=== PATIENT | female | born 1960 | race Caucasian/White ===

== ENCOUNTER 2017-04-15 09:45 | Emergency (ER) | payer MEDICARE ==
[~2017-04-15] VITALS: Ht 170.2 cm; Wt 83.0 kg
[~2017-04-15 09:45] MED LIST: ADVIL200 MG OR; ADVIL200 MG PO; ALBUTEROL2.5 MG/3 M IN; ALPRAZOLAM0.5 MG PO; ALPRAZOLAM1 MG PO; ALPRAZOLAM2 M1 PO; AMITRIPTYLIN25 MG PO; AMLODIPINE10 MG PO; AMOXICILLIN/PO500 MG PO; AMOXICILLIN500 MG OR; AMOXICILLIN500 MG PO; ATENOLOL50 MG OR; ATORVASTATIN CA20 MG PO; AUGMENTIN500TAB PO; AUGMENTIN875 MG OR; BACTRIM DS1 TAB OR; BENADRY2 EX; CIPRO XR500 MG OR; CORTISPORIN OTI10 ML OT; DILANTIN100 MG PO; DILAUDID2 MG PO; DILTIAZEM60 M1 OR; DITROPAN PO; DITROPAN XL10 MG PO; DUONEB IN; ELIMITE60 GM EX; ELIQUIS5 MG PO; FENOFIBRATE145 MG PO; FENOFIBRATE160 MG PO; FLUARIX QUADRIV1 INJ IM; FUROSEMIDE40 MG PO; HYDROCHLORO25 MG/TAB PO; IMITREX25 MG PO; KEFLEX500 M1 PO; KEPPRA500 M2 PO; KLOR-CON 1010 ME1 PO; KLOR-CON M1010 MEQ OR; KLOR-CON M1010 MEQ PO; LEVAQUIN500 MG PO; LIPITOR10 MG PO; LIPITOR20 MG OR; LIPITOR40 M1 PO; LIPITOR40 MG PO; LISINOPRIL10 MG PO; LISINOPRIL20 MG OR; LOFIBRA134 MG PO; LOFIBRA160 MG OR; LOFIBRA160 MG PO; LORTAB 10-325 M1 TAB PO; LORTAB 5 OR; LORTAB 5-325 MG1 TAB PO; LORTAB 7.5 OR; LORTAB 7.5 PO; LORTAB5 OR; MEDDOSEPAK PO; NAPROSYN500 MG OR; NAPROSYN500 MG PO; NEBULIZE1; NEBULIZE1 NEB; NORCO1 TA2 PO; NORVASC5 MG PO; PENICILLN VK500 MG PO; PHENYTOIN EX100 MG PO; POT CHLORIDE10 ME1 PO; ROBITUSSIN AC10 ML PO; SOMA350 MG OR; SOMA350 MG PO; TIZANIDINE4 MG PO; TRAMADOL HCL50 MG OR; TUSSIONEX1 ML OR; ULTRAM50 M1 PO; XANAX1 MG OR; ZITHROMAX250 MG OR; ZITHROMAX250 MG PO; ZPAK PO; [UNRECOGNIZED DRUG - REMARK]
[2017-04-15] MEDS ORDERED: LORTAB 5-325 MG1 TAB PO (10:18)
[2017-04-15] MEDS ORDERED: FLEXERIL PO (10:18)
[2017-04-15] MEDS ORDERED: NAPROSYN500 MG PO (10:18)
[2017-04-15 10:54] VITALS: BP 121/81
== END 2017-04-15 12:40 | disposition home or self-care (01) ==
LOC: ED 09:45
DX: S39.012A Strain of muscle, fascia and tendon of lower back, initial encounter (principal); S93.602A Unspecified sprain of left foot, initial encounter; I10 Essential (primary) hypertension; F41.9 Anxiety disorder, unspecified; G40.909 Epilepsy, unspecified, not intractable, without status epilepticus; F17.210 Nicotine dependence, cigarettes, uncomplicated; V68.1XXA Passenger in heavy transport vehicle injured in noncollision transport accident in nontraffic accident, initial encounter

== ENCOUNTER 2017-06-03 16:07 | Emergency (ER) | payer MEDICARE ==
[~2017-06-03] VITALS: Ht 170.2 cm; Wt 80.0 kg
[~2017-06-03 16:07] MED LIST changes: +FLEXERIL PO
[2017-06-03] MEDS ORDERED: MOTRIN800 MG PO (16:36)
[2017-06-03 16:42] VITALS: BP 107/67
== END 2017-06-03 16:52 | disposition home or self-care (01) ==
LOC: ED 16:07
DX: G89.29 Other chronic pain (principal); M54.5 Low back pain; I10 Essential (primary) hypertension; F41.9 Anxiety disorder, unspecified; G40.909 Epilepsy, unspecified, not intractable, without status epilepticus; F17.210 Nicotine dependence, cigarettes, uncomplicated; Z76.5 Malingerer [conscious simulation]

== ENCOUNTER 2017-08-07 15:40 | Emergency (ER) | payer MEDICARE ==
[~2017-08-07] VITALS: Ht 170.2 cm; Wt 73.4 kg
[~2017-08-07 15:40] MED LIST changes: +MOTRIN800 MG PO
[2017-08-07] MEDS ORDERED: EC-NAPROSYN500 MG PO (17:11)
[2017-08-07 17:28] VITALS: BP 102/72
== END 2017-08-07 17:24 | disposition home or self-care (01) ==
LOC: ED 15:40
DX: S16.1XXA Strain of muscle, fascia and tendon at neck level, initial encounter (principal); S39.012A Strain of muscle, fascia and tendon of lower back, initial encounter; I10 Essential (primary) hypertension; F41.9 Anxiety disorder, unspecified; F17.210 Nicotine dependence, cigarettes, uncomplicated; M25.531 Pain in right wrist; M79.641 Pain in right hand; V88.8XXA Person injured in other specified noncollision transport accidents involving motor vehicle, nontraffic, initial encounter

== ENCOUNTER 2018-09-06 10:50 | Emergency (ER) | payer MEDICARE ==
[~2018-09-06] VITALS: Ht 170.2 cm; Wt 72.0 kg
[~2018-09-06 10:50] MED LIST changes: +EC-NAPROSYN500 MG PO
[2018-09-06 11:49] LABS: HEMATOCRIT 32.2 % (37.0-47.0); HEMOGLOBIN 10.6 g/dl (12.0-16.0); IMMATURE GRANULOCYTES 0.2 % (0.0-5.0); MEAN CORPUSCULAR HGB 32.9 pG CALC (26.0-32.0); MEAN CORPUSCULAR HGB CONC 32.9 g/L CALC (32.0-36.0); NEUT# 2.29 thou/uL (2.00-7.15); RED BLOOD COUNT 3.22 mill/uL (4.20-5.60); RED CELL DISTRI WIDTH 12.2 % (11.5-15.5)
[2018-09-06 12:22] LABS: ALBUMIN 3.8 g/dL (3.2-5.0); ALKALINE PHOSPHATASE 76 u/l (38-126); ANION GAP 11 (6-22 (CALC)); BILIRUBIN, TOTAL 0.2 mg/dL (0.0-1.4); BUN 18 mg/dL (7-17); BUN/CREATININE RATIO 41 (12-20 (CALC)); C-REACTIVE PROTEIN 1.6 mg/dL (0-0.9); CARBON DIOXIDE 26 mmol/l (22-30); CHLORIDE 106 mmol/l (95-108); CREATININE 0.4 mg/dL (0.5-1.0); GFR > 60 ML/MIN (>=60 (CALC)); GFR FOR AFR.AMER. > 60 ML/MIN (>=60 (CALC)); SGOT/AST 14 u/l (14-36); SODIUM 140 mmol/l (137-146)
[2018-09-06 12:23] LABS: TOTAL PROTEIN 6.3 g/dL (6.3-8.2)
[2018-09-06] MEDS ORDERED: TORADOL PO (13:57)
[2018-09-06 14:04] VITALS: BP 129/81
== END 2018-09-06 14:17 | disposition home or self-care (01) ==
LOC: ED 10:50
PROVIDERS: Emergency Medicine
DX: M79.605 Pain in left leg (principal); M79.89 Other specified soft tissue disorders; I10 Essential (primary) hypertension; F41.9 Anxiety disorder, unspecified; F32.9 Major depressive disorder, single episode, unspecified

== ENCOUNTER 2018-11-19 08:19 | Inpatient (IN) | payer MEDICARE ==
[~2018-11-19] VITALS: Ht 165.1 cm; Wt 21.9 kg
[2018-11-19] VITALS (28 sets, daily range): BP systolic 92–131; BP diastolic 59–82
[~2018-11-19 08:19] MED LIST changes: +IBUPROFEN200 MG PO; +TORADOL PO
[2018-11-19 09:18] LABS: HEMATOCRIT 35.1 % (37.0-47.0); IMMATURE GRANULOCYTES 0.8 % (0.0-5.0); MEAN CELL VOLUME 91.4 fL CALC (80.0-100.0); MEAN CORPUSCULAR HGB 31.3 pG CALC (26.0-32.0); MEAN CORPUSCULAR HGB CONC 34.2 g/L CALC (32.0-36.0); NEUT# 6.63 thou/uL (2.00-7.15); RED BLOOD COUNT 3.84 mill/uL (4.20-5.60); RED CELL DISTRI WIDTH 12.1 % (11.5-15.5)
[2018-11-19 09:30] LABS: BUN 17 mg/dL (7-17); BUN/CREATININE RATIO 48 (12-20 (CALC)); CARBON DIOXIDE 25 mmol/l (22-30); CHLORIDE 97 mmol/l (95-108); CREATININE 0.3 mg/dL (0.5-1.0); GFR > 60 ML/MIN (>=60 (CALC)); GFR FOR AFR.AMER. > 60 ML/MIN (>=60 (CALC)); SODIUM 140 mmol/l (137-146)
[2018-11-19 10:19] LABS: ANION GAP 20 (6-22 (CALC)); POTASSIUM 2.3 mmol/l (3.5-5.1)
[2018-11-19 11:43] LABS: ACT PARTIAL THROMBO TIME 35.2 SECONDS (20.0-32.5); INTERNATIONAL NORMALIZED RATIO 1.1 RATIO (0.7-1.3); PROTHROMBIN TIME 11.1 SECONDS (9.0-12.5)
[2018-11-19 12:14] LABS: COCAINE NEGATIVE (NEGATIVE); METHADONE NEGATIVE (NEGATIVE); TETRAHYDROCANNABIONOL NEGATIVE (NEGATIVE)
[2018-11-19 12:15] LABS: BARBITURATES POSITIVE (NEGATIVE); OXCYCODONE NEGATIVE (NEGATIVE); TRICYLIC ANTIDEPRESSANTS POSITIVE (NEGATIVE)
[2018-11-19 18:15] LABS: HEMATOCRIT 31.9 % (37.0-47.0); HEMOGLOBIN 10.7 g/dl (12.0-16.0); MEAN CELL VOLUME 93.3 fL CALC (80.0-100.0); MEAN CORPUSCULAR HGB 31.3 pG CALC (26.0-32.0); MEAN CORPUSCULAR HGB CONC 33.5 g/L CALC (32.0-36.0); NEUT# 5.39 thou/uL (2.00-7.15); RED BLOOD COUNT 3.42 mill/uL (4.20-5.60); RED CELL DISTRI WIDTH 12.4 % (11.5-15.5)
[2018-11-19 18:41] LABS: ALKALINE PHOSPHATASE 123 u/l (38-126); BILIRUBIN, TOTAL 0.6 mg/dL (0.0-1.4); BUN 16 mg/dL (7-17); BUN/CREATININE RATIO 44 (12-20 (CALC)); CARBON DIOXIDE 26 mmol/l (22-30); CHLORIDE 99 mmol/l (95-108); CREATININE 0.4 mg/dL (0.5-1.0); GFR > 60 ML/MIN (>=60 (CALC)); GFR FOR AFR.AMER. > 60 ML/MIN (>=60 (CALC)); SODIUM 139 mmol/l (137-146)
[2018-11-19 18:50] LABS: ALBUMIN 2.8 g/dL (3.2-5.0); ANION GAP 17 (6-22 (CALC)); POTASSIUM 2.9 mmol/l (3.5-5.1); SGOT/AST 30 u/l (14-36); TOTAL PROTEIN 5.4 g/dL (6.3-8.2)
[2018-11-19 19:25] LABS: URINE BLOOD DIPSTICK LARGE (NEGATIVE); URINE COLOR YELLOW; URINE GLUCOSE - DIPSTICK NEGATIVE (NEGATIVE); URINE KETONE 15 mg/dL (NEGATIVE); URINE LEUK ESTERASE NEGATIVE (NEGATIVE); URINE NITRITE - DIPSTICK NEGATIVE (Negative); URINE PROTEIN - DIPSTICK >=300 mg/dL (NEG-TRACE); URINE SPECIFIC GRAVITY >=1.030; URINE UROBILINOGEN - DIPSTICK 0.2 E.U./dL (0.2)
[2018-11-19 19:31] LABS: URINE BILIRUBIN - DIPSTICK NEGATIVE (NEGATIVE)
[2018-11-19 19:33] LABS: URINE AMORPH SEDIMENT MANY hpf (NONE-FEW); URINE SQUAMOUS EPITHELIAL CELL FEW EPI/hpf (0-FEW)
== END 2018-11-19 21:10 | DRG 208 ==
LOC: ED 08:19 → ED-I 09:50 → ED 10:45 → ICU 10:46
PROVIDERS: Family Medicine; ADMIT Internal Medicine Geriatric Medicine; ATTEND Internal Medicine Geriatric Medicine
PROC: 0BH17EZ Insertion of Endotracheal Airway into Trachea, Via Natural or Artificial Opening (ICD-10-PCS; principal; 2018-11-19)
PROC: 5A1935Z Respiratory Ventilation, Less than 24 Consecutive Hours (ICD-10-PCS; 2018-11-19)
PROC: 02HV33Z Insertion of Infusion Device into Superior Vena Cava, Percutaneous Approach (ICD-10-PCS; 2018-11-19)
DX: J44.1 Chronic obstructive pulmonary disease with (acute) exacerbation (principal); J96.01 Acute respiratory failure with hypoxia; F11.20 Opioid dependence, uncomplicated; G89.29 Other chronic pain; M54.5 Low back pain; F13.180 Sedative, hypnotic or anxiolytic abuse with sedative, hypnotic or anxiolytic-induced anxiety disorder; F12.10 Cannabis abuse, uncomplicated; F19.10 Other psychoactive substance abuse, uncomplicated; E03.9 Hypothyroidism, unspecified; I10 Essential (primary) hypertension; F32.9 Major depressive disorder, single episode, unspecified; I25.10 Atherosclerotic heart disease of native coronary artery without angina pectoris; E78.5 Hyperlipidemia, unspecified; F17.210 Nicotine dependence, cigarettes, uncomplicated
CPT/HCPCS: G9019; J1644; J3475

== ENCOUNTER 2019-05-22 15:21 | Emergency (ER) | payer MEDICARE, MEDICAID ==
[~2019-05-22] VITALS: Ht 165.1 cm; Wt 75.0 kg
[2019-05-22] MEDS ORDERED: CEPHALEXIN500 M1 PO (15:32)
[2019-05-22] MEDS ORDERED: BACTRIM DS1 TAB PO (15:32)
[2019-05-22] MEDS ORDERED: DILANTIN100 MG PO (15:42)
[2019-05-22] MEDS ORDERED: TRICOR48 MG PO (15:43)
[2019-05-22] MEDS ORDERED: LISINOPRIL10 M1 PO (15:46)
[2019-05-22] MEDS ORDERED: AMLODIPINE BESY10 MG PO (15:47)
[2019-05-22 16:09] VITALS: BP 162/82
== END 2019-05-22 15:50 | disposition home or self-care (01) ==
LOC: ED 15:21
PROC: 0H97XZZ Drainage of Abdomen Skin, External Approach (ICD-10-PCS; principal; 2019-05-22)
DX: L02.211 Cutaneous abscess of abdominal wall (principal); I10 Essential (primary) hypertension; J44.9 Chronic obstructive pulmonary disease, unspecified; F17.210 Nicotine dependence, cigarettes, uncomplicated; B95.62 Methicillin resistant Staphylococcus aureus infection as the cause of diseases classified elsewhere

== ENCOUNTER 2019-05-24 12:19 | Emergency (ER) | payer MEDICARE, MEDICAID ==
[~2019-05-24] VITALS: Ht 165.1 cm; Wt 68.0 kg
[~2019-05-24 12:19] MED LIST changes: +AMLODIPINE BESY10 MG PO; +BACTRIM DS1 TAB PO; +CEPHALEXIN500 M1 PO; +LISINOPRIL10 M1 PO; +TRICOR48 MG PO
[2019-05-24] MEDS ORDERED: FENOFIBRATE145 MG PO (12:36)
[2019-05-24] MEDS ORDERED: AMITRIPTYLIN25 MG PO (12:37)
[2019-05-24] MEDS ORDERED: GABAPENTIN600 MG PO (12:37)
[2019-05-24] MEDS ORDERED: LORTAB 1010 MG PO (12:38)
[2019-05-24] MEDS ORDERED: DIAZEPAM5 M1 PO (12:38)
[2019-05-24] MEDS ORDERED: HYDROCHLOROT25 MG PO (12:39)
[2019-05-24 12:55] VITALS: BP 128/82
== END 2019-05-24 12:55 | disposition home or self-care (01) ==
LOC: ED 12:19
DX: Z48.01 Encounter for change or removal of surgical wound dressing (principal); I10 Essential (primary) hypertension; J44.9 Chronic obstructive pulmonary disease, unspecified; F17.210 Nicotine dependence, cigarettes, uncomplicated

== ENCOUNTER 2019-07-02 05:53 | Inpatient (IN) | payer MEDICARE, MEDICAID ==
[~2019-07-02] VITALS: Ht 165.1 cm; Wt 74.4 kg
[2019-07-02] VITALS (41 sets, daily range): BP systolic 80–132; BP diastolic 51–83
[~2019-07-02 05:53] MED LIST changes: +DIAZEPAM5 M1 PO; +GABAPENTIN600 MG PO; +HYDROCHLOROT25 MG PO; +LORTAB 1010 MG PO
[2019-07-02] MEDS ORDERED: CYCLOBENZAPR5 MG PO (06:21)
[2019-07-02] MEDS ORDERED: TESSALON PER100 MG PO (06:22)
[2019-07-02] MEDS ORDERED: NORVASC5 M1 PO (06:23)
[2019-07-02] MEDS ORDERED: ATORVASTATIN CA40 MG PO (06:23)
[2019-07-02 06:41] LABS: HEMATOCRIT 39.7 % (37.0-47.0); HEMOGLOBIN 13.7 g/dl (12.0-16.0); IMMATURE GRANULOCYTES 0.2 % (0.0-5.0); MEAN CORPUSCULAR HGB 32.8 pG CALC (26.0-32.0); MEAN CORPUSCULAR HGB CONC 34.5 g/L CALC (32.0-36.0); NEUT# 5.83 thou/uL (2.00-7.15); RED BLOOD COUNT 4.18 mill/uL (4.20-5.60); RED CELL DISTRI WIDTH 11.7 % (11.5-15.5)
[2019-07-02 06:43] LABS: URINE BILIRUBIN - DIPSTICK NEGATIVE (NEGATIVE); URINE BLOOD DIPSTICK TRACE-LYSED (NEGATIVE); URINE COLOR YELLOW; URINE KETONE NEGATIVE (NEGATIVE); URINE LEUK ESTERASE NEGATIVE (NEGATIVE); URINE NITRITE - DIPSTICK NEGATIVE (Negative); URINE PROTEIN - DIPSTICK NEGATIVE (NEG-TRACE); URINE SPECIFIC GRAVITY >=1.030; URINE UROBILINOGEN - DIPSTICK 0.2 E.U./dL (0.2)
[2019-07-02 06:44] LABS: URINE GLUCOSE - DIPSTICK NEGATIVE (NEGATIVE)
[2019-07-02 06:55] LABS: ALBUMIN 4.4 g/dL (3.2-5.0); ALKALINE PHOSPHATASE 96 u/l (38-126); ANION GAP 18 (6-22 (CALC)); BILIRUBIN, TOTAL 0.6 mg/dL (0.0-1.4); BUN 41 mg/dL (7-17); BUN/CREATININE RATIO 15 (12-20 (CALC)); CARBON DIOXIDE 23 mmol/l (22-30); CHLORIDE 98 mmol/l (95-108); GFR 18 ML/MIN (>=60 (CALC)); GFR FOR AFR.AMER. 22 ML/MIN (>=60 (CALC)); POTASSIUM 3.3 mmol/l (3.5-5.1); SGOT/AST 13 u/l (14-36); SODIUM 136 mmol/l (137-146); TOTAL PROTEIN 7.4 g/dL (6.3-8.2)
[2019-07-02 06:56] LABS: CREATININE 2.7 mg/dL (0.5-1.0)
[2019-07-02 07:07] LABS: MYOGLOBIN 117 ng/mL (0 - 62)
[2019-07-02 09:23] LABS: BARBITURATES POSITIVE (NEGATIVE); COCAINE NEGATIVE (NEGATIVE); METHADONE NEGATIVE (NEGATIVE); OXCYCODONE POSITIVE (NEGATIVE); TETRAHYDROCANNABIONOL NEGATIVE (NEGATIVE); TRICYLIC ANTIDEPRESSANTS POSITIVE (NEGATIVE)
[2019-07-03] VITALS (9 sets, daily range): BP systolic 111–161; BP diastolic 56–93
[2019-07-03 05:16] LABS: HEMATOCRIT 36.1 % (37.0-47.0); HEMOGLOBIN 12.5 g/dl (12.0-16.0); IMMATURE GRANULOCYTES 0.2 % (0.0-5.0); MEAN CELL VOLUME 95.8 fL CALC (80.0-100.0); MEAN CORPUSCULAR HGB 33.2 pG CALC (26.0-32.0); MEAN CORPUSCULAR HGB CONC 34.6 g/L CALC (32.0-36.0); NEUT# 3.59 thou/uL (2.00-7.15); RED BLOOD COUNT 3.77 mill/uL (4.20-5.60); RED CELL DISTRI WIDTH 11.7 % (11.5-15.5)
[2019-07-03 05:36] LABS: ALBUMIN 3.6 g/dL (3.2-5.0); ALKALINE PHOSPHATASE 85 u/l (38-126); ANION GAP 10 (6-22 (CALC)); BUN 16 mg/dL (7-17); BUN/CREATININE RATIO 32 (12-20 (CALC)); CARBON DIOXIDE 28 mmol/l (22-30); CHLORIDE 105 mmol/l (95-108); CREATININE 0.5 mg/dL (0.5-1.0); GFR > 60 ML/MIN (>=60 (CALC)); GFR FOR AFR.AMER. > 60 ML/MIN (>=60 (CALC)); POTASSIUM 3.6 mmol/l (3.5-5.1); SGOT/AST 12 u/l (14-36); SODIUM 139 mmol/l (137-146); TOTAL PROTEIN 6.2 g/dL (6.3-8.2)
[2019-07-03 05:37] LABS: BILIRUBIN, TOTAL 0.3 mg/dL (0.0-1.4)
[2019-07-04] VITALS (9 sets, daily range): BP systolic 112–150; BP diastolic 73–96
== END 2019-07-04 16:25 | DRG 897 ==
LOC: ED 05:53 → ED-I 08:23 → ICU 08:41 → ED 08:41 → ICU 08:41
PROVIDERS: Emergency Medicine; ADMIT Internal Medicine Geriatric Medicine; ATTEND Internal Medicine Geriatric Medicine
PROC: 02HV33Z Insertion of Infusion Device into Superior Vena Cava, Percutaneous Approach (ICD-10-PCS; principal; 2019-07-02)
PROC: 0T9B70Z Drainage of Bladder with Drainage Device, Via Natural or Artificial Opening (ICD-10-PCS; 2019-07-02)
DX: F13.180 Sedative, hypnotic or anxiolytic abuse with sedative, hypnotic or anxiolytic-induced anxiety disorder (principal); F19.20 Other psychoactive substance dependence, uncomplicated; F11.950 Opioid use, unspecified with opioid-induced psychotic disorder with delusions; F11.951 Opioid use, unspecified with opioid-induced psychotic disorder with hallucinations; F15.950 Other stimulant use, unspecified with stimulant-induced psychotic disorder with delusions; F15.951 Other stimulant use, unspecified with stimulant-induced psychotic disorder with hallucinations; I10 Essential (primary) hypertension; J44.9 Chronic obstructive pulmonary disease, unspecified; F17.200 Nicotine dependence, unspecified, uncomplicated; I95.9 Hypotension, unspecified; E03.9 Hypothyroidism, unspecified; I25.10 Atherosclerotic heart disease of native coronary artery without angina pectoris; G89.29 Other chronic pain
CPT/HCPCS: J2060

== ENCOUNTER 2019-09-13 17:12 | Emergency (ER) | payer MEDICARE, MEDICAID ==
[~2019-09-13] VITALS: Ht 170.2 cm; Wt 70.0 kg
[~2019-09-13 17:12] MED LIST changes: +ATORVASTATIN CA40 MG PO; +CYCLOBENZAPR5 MG PO; +NORVASC5 M1 PO; +TESSALON PER100 MG PO
[2019-09-13 20:02] LABS: HEMATOCRIT 32.7 % (37.0-47.0); IMMATURE GRANULOCYTES 0.4 % (0.0-5.0); MEAN CELL VOLUME 92.1 fL CALC (80.0-100.0); MEAN CORPUSCULAR HGB 28.5 pG CALC (26.0-32.0); MEAN CORPUSCULAR HGB CONC 30.9 g/L CALC (32.0-36.0); NEUT# 5.12 thou/uL (2.00-7.15); RED BLOOD COUNT 3.55 mill/uL (4.20-5.60); RED CELL DISTRI WIDTH 16.2 % (11.5-15.5)
[2019-09-13 20:03] LABS: HEMOGLOBIN 10.1 g/dl (12.0-16.0)
[2019-09-13 20:26] LABS: ALBUMIN 3.8 g/dL (3.2-5.0); CREATININE 1.2 mg/dL (0.5-1.0); MAGNESIUM 1.6 mg/dL (1.6-2.3); POTASSIUM 4.1 mmol/l (3.5-5.1); TOTAL PROTEIN 7.3 g/dL (6.3-8.2)
[2019-09-13 20:36] LABS: BILIRUBIN, TOTAL 0.7 mg/dL (0.0-1.4)
[2019-09-13 20:55] LABS: TSH, 3RD GENERATION 0.41 uIU/mL (0.47 - 4.68)
[2019-09-14 00:38] LABS: URINE BILIRUBIN - DIPSTICK NEGATIVE (NEGATIVE); URINE BLOOD DIPSTICK MODERATE (NEGATIVE); URINE COLOR YELLOW; URINE GLUCOSE - DIPSTICK NEGATIVE (NEGATIVE); URINE KETONE NEGATIVE (NEGATIVE); URINE LEUK ESTERASE NEGATIVE (NEGATIVE); URINE NITRITE - DIPSTICK NEGATIVE (Negative); URINE PH 5.5 (4.5-8.0); URINE PROTEIN - DIPSTICK TRACE mg/dL (NEG-TRACE); URINE SPECIFIC GRAVITY 1.025; URINE UROBILINOGEN - DIPSTICK 0.2 E.U./dL (0.2)
[2019-09-14 00:42] LABS: COCAINE NEGATIVE (NEGATIVE); METHADONE NEGATIVE (NEGATIVE); TETRAHYDROCANNABIONOL NEGATIVE (NEGATIVE)
[2019-09-14 00:43] LABS: BARBITURATES NEGATIVE (NEGATIVE); OXCYCODONE POSITIVE (NEGATIVE); TRICYLIC ANTIDEPRESSANTS NEGATIVE (NEGATIVE)
[2019-09-14 00:45] LABS: URINE SQUAMOUS EPITHELIAL CELL MANY EPI/hpf (0-FEW)
[2019-09-14] MEDS ORDERED: HYDROCODONE BIT1 TA9 PO (00:56)
[2019-09-14] MEDS ORDERED: XANAX1 MG PO (00:57)
[2019-09-14 01:12] VITALS: BP 89/63
== END 2019-09-14 01:12 | disposition home or self-care (01) ==
LOC: ED 17:12
PROVIDERS: Family Medicine
DX: I95.2 Hypotension due to drugs (principal); R40.0 Somnolence; T40.2X5A Adverse effect of other opioids, initial encounter; I10 Essential (primary) hypertension; J44.9 Chronic obstructive pulmonary disease, unspecified; F17.210 Nicotine dependence, cigarettes, uncomplicated; Z89.612 Acquired absence of left leg above knee

== ENCOUNTER 2021-03-04 12:10 | Emergency (ER) | payer MEDICARE, MEDICAID ==
[~2021-03-04] VITALS: Ht 170.2 cm; Wt 63.0 kg
[~2021-03-04 12:10] MED LIST changes: +HYDROCODONE BIT1 TA9 PO; +XANAX1 MG PO
[2021-03-04] MEDS ORDERED: OXYCODONE5 M1 PO (13:41)
[2021-03-04 14:00] VITALS: BP 170/90
[2021-06-22] MEDS ORDERED: MORPHINE SULFAT20 MG PO ×2 (16:22→16:27)
[2021-06-22] MEDS ORDERED: OXYCODONE10 M1 PO ×2 (16:32→16:33)
[2021-06-23] MEDS ORDERED: OXYCODONE10 M1 PO (10:19)
[2021-06-23] MEDS ORDERED: MORPHINE SULFAT20 MG PO (10:22)
== END 2021-03-04 14:07 | disposition home or self-care (01) ==
LOC: ED 12:10
PROC: 2W3CX1Z Immobilization of Right Lower Arm using Splint (ICD-10-PCS; principal; 2021-03-04)
DX: S62.396A Other fracture of fifth metacarpal bone, right hand, initial encounter for closed fracture (principal); I10 Essential (primary) hypertension; F32.9 Major depressive disorder, single episode, unspecified; F41.9 Anxiety disorder, unspecified; J44.9 Chronic obstructive pulmonary disease, unspecified; F17.200 Nicotine dependence, unspecified, uncomplicated; W18.30XA Fall on same level, unspecified, initial encounter; Y92.009 Unspecified place in unspecified non-institutional (private) residence as the place of occurrence of the external cause; Z91.81 History of falling; Z89.612 Acquired absence of left leg above knee

== ENCOUNTER 2021-08-03 18:21 | Emergency (ER) | payer MEDICARE, MEDICAID ==
[~2021-08-03] VITALS: Ht 170.2 cm; Wt 60.0 kg
[~2021-08-03 18:21] MED LIST changes: +MORPHINE SULFAT20 MG PO; +MS CONTIN15 M1 PO; +OXYCODONE10 M1 PO; +OXYCODONE5 M1 PO
[2021-08-03 18:30] VITALS: BP 105/63
[2021-08-03 18:49] LABS: HEMATOCRIT 42.9 % (37.0-47.0); HEMOGLOBIN 13.9 g/dl (12.0-16.0); IMMATURE GRANULOCYTES 0.2 % (0.0-5.0); MEAN CORPUSCULAR HGB 31.1 pG CALC (26.0-32.0); MEAN CORPUSCULAR HGB CONC 32.4 g/dL CAL (32.0-36.0); NEUT# 3.1 thou/uL (2.00-7.15); RED BLOOD COUNT 4.47 mill/uL (4.20-5.60); RED CELL DISTRI WIDTH 11.7 % (11.5-15.5)
[2021-08-03 19:07] LABS: ALBUMIN 4.8 g/dL (3.2-5.0); ALKALINE PHOSPHATASE 117 u/l (38-126); BUN 13 mg/dL (7-17); BUN/CREATININE RATIO 23 (12-20 (CALC)); CHLORIDE 103 mmol/l (95-108); CREATININE 0.6 mg/dL (0.5-1.0); ETHYL ALCOHOL 0 mg/dl (0-30); GFR > 60 ML/MIN (>=60 (CALC)); GFR FOR AFR.AMER. > 60 ML/MIN (>=60 (CALC)); MAGNESIUM 1.5 mg/dL (1.6-2.3); POTASSIUM 3.4 mmol/l (3.5-5.1); SGOT/AST 17 u/l (14-36); SODIUM 138 mmol/l (137-146); TOTAL PROTEIN 8.4 g/dL (6.3-8.2)
[2021-08-03 19:08] LABS: ANION GAP 17 (6-22 (CALC)); BILIRUBIN, TOTAL 0.6 mg/dL (0.0-1.4); CARBON DIOXIDE 21 mmol/l (22-30)
== END 2021-08-03 20:05 | disposition left against medical advice (07) ==
LOC: ED 18:21
PROVIDERS: Emergency Medicine
DX: T40.2X1A Poisoning by other opioids, accidental (unintentional), initial encounter (principal); R41.82 Altered mental status, unspecified; I10 Essential (primary) hypertension; J44.9 Chronic obstructive pulmonary disease, unspecified; F32.A Depression, unspecified; F41.9 Anxiety disorder, unspecified; Z91.19 Patient's noncompliance with other medical treatment and regimen

== ENCOUNTER 2021-08-11 07:01 | Day surgery (SDC) | payer MEDICARE, MEDICAID ==
[~2021-08-11] VITALS: Ht 170.2 cm; Wt 72.6 kg
[2021-08-11 09:20] VITALS: BP 145/80
== END 2021-08-11 10:15 | disposition home or self-care (01) ==
LOC: ORM 07:01
PROVIDERS: ATTEND Anesthesiology Pain Medicine
DX: M96.1 Postlaminectomy syndrome, not elsewhere classified (principal); M54.50 Low back pain, unspecified; M47.816 Spondylosis without myelopathy or radiculopathy, lumbar region

== ENCOUNTER 2021-09-29 06:24 | Day surgery (SDC) | payer MEDICARE, MEDICAID ==
[2021-09-29 07:56] VITALS: BP 141/95
== END 2021-09-29 08:15 | disposition home or self-care (01) ==
LOC: ORM 06:24
PROVIDERS: ATTEND Anesthesiology Pain Medicine
DX: M47.817 Spondylosis without myelopathy or radiculopathy, lumbosacral region (principal); M96.1 Postlaminectomy syndrome, not elsewhere classified; M54.59 Other low back pain

== ENCOUNTER 2022-06-29 13:31 | Emergency (ER) | payer MEDICARE, MEDICAID ==
[~2022-06-29] VITALS: Ht 170.2 cm; Wt 75.0 kg
[2022-06-29 13:39] VITALS: BP 120/79
[2022-06-29 13:46] VITALS: BP 110/64
[2022-06-29 14:01] VITALS: BP 96/61
[2022-06-29 14:16] VITALS: BP 111/72
[2022-06-29 14:30] VITALS: BP 113/72
[2022-06-29] MEDS ORDERED: NAPROXEN500 MG PO (16:11)
[2022-06-29 16:17] VITALS: BP 113/72
[2022-06-29] MEDS ORDERED: ULTRAM50 M1 PO (16:23)
== END 2022-06-29 16:31 | disposition home or self-care (01) ==
LOC: ED 13:31
DX: S43.402A Unspecified sprain of left shoulder joint, initial encounter (principal); S46.812A Strain of other muscles, fascia and tendons at shoulder and upper arm level, left arm, initial encounter; I10 Essential (primary) hypertension; J44.9 Chronic obstructive pulmonary disease, unspecified; F32.A Depression, unspecified; F41.9 Anxiety disorder, unspecified; W10.9XXA Fall (on) (from) unspecified stairs and steps, initial encounter; Y92.009 Unspecified place in unspecified non-institutional (private) residence as the place of occurrence of the external cause; Z89.612 Acquired absence of left leg above knee

== ENCOUNTER 2024-05-12 12:54 | Emergency (ER) | payer MEDICARE, MEDICAID ==
[~2024-05-12 12:54] MED LIST changes: +AZITHROMYCIN500 MG PO; +COZAAR25 MG PO; +CYMBALTA30 MG PO; +DOXYCYC MONO100 M3 PO; +HYDROCO/APAP1 TA9 PO; +NAPROXEN500 MG PO; +PREDNISONE10 MG PO; +TRAZODONE100 MG PO; +TRELEGY ELLIPTA1 AER IN
== END 2024-05-12 13:22 | disposition left against medical advice (07) ==
LOC: ED 12:54 → LWOBS 13:22
DX: Z53.21 Procedure and treatment not carried out due to patient leaving prior to being seen by health care provider (principal)

== ENCOUNTER 2024-10-20 15:06 | Emergency (ER) | payer MEDICARE, MEDICAID ==
[~2024-10-20] VITALS: Ht 170.2 cm; Wt 65.7 kg
[2024-10-20] MEDS ORDERED: SODIUM CHLORIDE 0.9% 1,000 ML IV ONE (15:15)
[2024-10-20 15:55] LABS: BASO% 0.5 % (0-3); EOS% 4.7 % (0-8); IMMATURE GRANULOCYTES 0.2 % (0.0-5.0); LYMPH% 36.4 % (15-41); MEAN CELL VOLUME 93.1 fL CALC (80.0-100.0); MEAN CORPUSCULAR HGB 30.6 pG CALC (26.0-32.0); MEAN CORPUSCULAR HGB CONC 32.9 g/dL CAL (32.0-36.0); MONO% 5.6 % (2-13); NEUT# 2.89 thou/uL (2.00-7.15); NEUT% 52.6 % (42-76); RED BLOOD COUNT 4.64 mill/uL (4.20-5.60); RED CELL DISTRI WIDTH 12.3 % (11.5-15.5)
[2024-10-20 15:57] LABS: HEMATOCRIT 43.2 % (37.0-47.0); HEMOGLOBIN 14.2 g/dl (12.0-16.0)
[2024-10-20 16:07] LABS: ALBUMIN 4.4 g/dL (3.2-5.0); BILIRUBIN, TOTAL 0.6 mg/dL (0.02-1.3); CREATININE 0.5 mg/dL (0.5-1.0); POTASSIUM 4.2 mmol/l (3.5-5.1); TOTAL PROTEIN 7.6 g/dL (6.3-8.2)
[2024-10-20 16:42] LABS: URINE BILIRUBIN - DIPSTICK Negative (NEGATIVE); URINE BLOOD DIPSTICK Moderate (NEGATIVE); URINE COLOR Yellow; URINE GLUCOSE - DIPSTICK Negative (NEGATIVE); URINE KETONE Negative (NEGATIVE); URINE LEUK ESTERASE Negative (NEGATIVE); URINE NITRITE - DIPSTICK Positive (Negative); URINE PH 5.5 (4.5-8.0); URINE PROTEIN - DIPSTICK Negative (NEG-TRACE); URINE SPECIFIC GRAVITY 1.025; URINE UROBILINOGEN - DIPSTICK 0.2 E.U./dL (0.2)
[2024-10-20 16:43] LABS: URINE BACTERIA MANY hpf; URINE RBC 0-2 RBC/hpf (0-5); URINE WBC 0-2 WBC/hpf (0-5)
[2024-10-20] MEDS ORDERED: KEFLEX500 MG PO (17:38)
[2024-10-20 18:25] VITALS: BP 117/82
[2024-10-22] MEDS ORDERED: MACROBID100 M1 PO (14:34)
--- NOTE | 2024-10-22 16:44 | NUR ---
Patient seen in ED on 10/20 for UTI. ESBL E.coli on urine culture. Was discharged on cephalexin 500 mg 4 times daily. New prescription for Macrobid 100 mg bid x 5 days sent to patient's pharmacy.
== END 2024-10-20 18:56 | disposition home or self-care (01) ==
LOC: ED 15:06
PROVIDERS: Family Medicine; Nurse Practitioner Family
DX: F11.10 Opioid abuse, uncomplicated (principal); F16.10 Hallucinogen abuse, uncomplicated; F15.10 Other stimulant abuse, uncomplicated; N39.0 Urinary tract infection, site not specified; B96.20 Unspecified Escherichia coli [E. coli] as the cause of diseases classified elsewhere; Z16.12 Extended spectrum beta lactamase (ESBL) resistance; I10 Essential (primary) hypertension; J44.9 Chronic obstructive pulmonary disease, unspecified; F32.A Depression, unspecified; F41.9 Anxiety disorder, unspecified; F17.200 Nicotine dependence, unspecified, uncomplicated; Z89.612 Acquired absence of left leg above knee
CPT/HCPCS: J0696

== ENCOUNTER 2024-12-12 12:27 | Emergency (ER) | payer MEDICARE, MEDICAID ==
[2024-12-12] VITALS (9 sets, daily range): BP systolic 127–160; BP diastolic 77–132
[~2024-12-12] VITALS: Ht 170.2 cm; Wt 72.0 kg
[~2024-12-12 12:27] MED LIST changes: +KEFLEX500 MG PO; +MACROBID100 M1 PO
[2024-12-12] MEDS ORDERED: ORPHENADRINE CITRATE 30 MG/ML AMP IM ONE (13:00)
[2024-12-12] MEDS ORDERED: KETOROLAC TROMETHAMINE 30 MG/ML SDV IM ONE (13:00)
[2024-12-12] MEDS ORDERED: METHOCARBAMOL500 MG PO (14:20)
== END 2024-12-12 15:09 | disposition home or self-care (01) ==
LOC: ED 12:27
DX: M54.2 Cervicalgia (principal); M54.50 Low back pain, unspecified; I10 Essential (primary) hypertension; J44.9 Chronic obstructive pulmonary disease, unspecified; F41.9 Anxiety disorder, unspecified; F32.A Depression, unspecified; F17.200 Nicotine dependence, unspecified, uncomplicated; V89.2XXA Person injured in unspecified motor-vehicle accident, traffic, initial encounter; Z89.612 Acquired absence of left leg above knee
CPT/HCPCS: J2360